=== PATIENT | female | born 1940 ===

== ENCOUNTER 2024-08-18 10:00 | Inpatient (IN) | payer OTHER ==
[~2024-08-18] VITALS: Ht 73.7 cm; Wt 68.9 kg
[2024-08-21] MEDS ORDERED: AVAPRO300 MG PO (10:52)
[2024-08-21] MEDS ORDERED: NORVASC10 MG (10:53)
[2024-08-21] MEDS ORDERED: SYNTHROID137 MCG (10:53)
[2024-08-21] MEDS ORDERED: NEXIUM 24HR20 M1 (10:54)
[2024-08-21] MEDS ORDERED: XARELTO20 MG (10:54)
[2024-08-21] MEDS ORDERED: ISOSORBIDE MONO60 MG (10:55)
[2024-08-21 11:17] VITALS: BP 125/68
[2024-08-21 11:23] VITALS: BP 160/78
[2024-08-29] MEDS ORDERED: BUPIVACAINE HCL/MPF 0.5% 30ML VIAL ONE (07:06)
[2024-08-29] MEDS ORDERED: VANCOMYCIN HCL 1,000 MG VIAL ONE (07:06)
[2024-08-29] MEDS ORDERED: LIDOCAINE HCL 1%/EPINEPHRINE 20ML VIAL IJ ONE (07:06)
[2024-08-29] MEDS ORDERED: KETOROLAC TROMETHAMINE 60 MG VIAL IM ONE (07:06)
[2024-08-29] MEDS ORDERED: CEFAZOLIN SODIUM 1,000 MG VIAL ONE ×2 (07:19→11:51)
[2024-08-29] MEDS ORDERED: TRANEXAMIC ACID 100MG/1ML (1000MG) AMPUL IV ONE (07:19)
[2024-08-29] MEDS ORDERED: MORPHINE SULFATE 4 MG/ML VIAL IV ONE ×3 (07:30→11:00)
[2024-08-29] MEDS ORDERED: ISOPROPYL ALCOHOL 30 ML OUNCE TOP ONE (07:30)
[2024-08-29] MEDS ORDERED: OxyCODONE HCL 5 MG TABLET (ROXICODONE) PO PRN (09:30)
[2024-08-29] MEDS ORDERED: ONDANSETRON HCL 2 MG/ML VIAL IV PRN (09:30)
[2024-08-29] MEDS ORDERED: ACETAMINOPHEN 325 MG TABLET PO PRN (10:00)
[2024-08-29] MEDS ORDERED: SUGAMMADEX SODIUM 200 MG/2 ML VIAL IV ONE (11:00)
[2024-08-29] MEDS ORDERED: MORPHINE SULFATE 4 MG/ML CARTRIDGE IV SCH (12:00)
[2024-08-29] MEDS ORDERED: CEFAZOLIN SODIUM 1,000 MG VIAL IV SCH (12:00)
[2024-08-29] MEDS ORDERED: ENALAPRILAT DIHYDRATE 1.25 MG/ML VIAL IV ONE (12:05)
[2024-08-29] MEDS ORDERED: ONDANSETRON HCL 2 MG/ML VIAL ONE (12:24)
[2024-08-29 14:39] VITALS: BP 125/68
[2024-08-29] MEDS ORDERED: ENALAPRILAT DIHYDRATE 2.5 MG/2 ML VIAL IV PRN (15:45)
[2024-08-29 16:55] VITALS: BP 144/74
[2024-08-29] MEDS ORDERED: ORPHENADRINE CITRATE 100 MG TABLET PO SCH (21:00)
[2024-08-29] MEDS ORDERED: FAMOTIDINE/PF 20 MG in 0.9 % SODIUM CHLORIDE 8 ML IV PUSH SCH (21:00)
[2024-08-29] MEDS ORDERED: GABAPENTIN 100 MG CAPSULE PO SCH (21:00)
[2024-08-30 00:10] VITALS: BP 157/75
[2024-08-30 02:07] LABS: BASO % 0.2 % (0.1-1.2); EOS # 0.13 (0.04-0.54); EOS % 1.1 % (0.7-7.0); HEMATOCRIT 32.4 % (34.1-44.9); HEMOGLOBIN 10.9 g/dL (11.2-15.7); LYMPH # 1.63 (1.18-3.74); LYMPH % 13.5 % (19.3-53.1); MEAN CORPUSCULAR HEMOGLOBIN 30.3 pg (25.6-32.2); MONO # 0.76 (0.24-0.82); MONO % 6.3 % (4.7-12.5); NEUT # 9.53 (1.56-6.13); NEUT % 78.7 % (34.0-71.1); PLATELET COUNT 261 K/uL (163-369); RED CELL DISTRIBUTION WIDTH 13.9 % (11.6-14.4)
[2024-08-30] MEDS ORDERED: LEVOTHYROXINE SODIUM 137 MCG TABLET PO SCH (06:00)
[2024-08-30 07:59] VITALS: BP 159/77
[2024-08-30] MEDS ORDERED: ISOSORBIDE MONONITRATE 60 MG TABLET PO SCH (09:00)
[2024-08-30] MEDS ORDERED: IRBESARTAN 300 MG TABLET PO SCH (09:00)
[2024-08-30] MEDS ORDERED: APIXABAN 2.5 MG TABLET PO SCH (09:00)
[2024-08-30] MEDS ORDERED: AMLODIPINE BESYLATE 10 MG TABLET PO SCH (09:00)
[2024-08-30 12:21] LABS: COVID-19 AG NEGATIVE (NEGATIVE)
[2024-08-30 12:30] LABS: ALBUMIN 2.3 gm/dL (3.4-5.0); BILIRUBIN TOTAL 0.8 mg/dL (0.3-1.2); CREATININE SERUM 0.74 mg/dL (0.55-1.02); GFR 74.77; GLOBULINA 2.6 G/DL (2.4-3.5); POTASSIUM 4.19 mEq/L (3.5-5.1); TOTAL PROTEIN 4.9 gm/dL (6.4-8.2)
[2024-08-30 12:42] VITALS: BP 153/76
[2024-08-30 16:54] VITALS: BP 165/80
[2024-08-31 02:17] LABS: BASO % 0.3 % (0.1-1.2); EOS # 0.38 (0.04-0.54); EOS % 3.1 % (0.7-7.0); HEMATOCRIT 32.7 % (34.1-44.9); HEMOGLOBIN 10.9 g/dL (11.2-15.7); LYMPH # 2.27 (1.18-3.74); LYMPH % 18.4 % (19.3-53.1); MEAN CORPUSCULAR HEMOGLOBIN 29.8 pg (25.6-32.2); MONO # 0.85 (0.24-0.82); MONO % 6.9 % (4.7-12.5); NEUT # 8.75 (1.56-6.13); NEUT % 70.8 % (34.0-71.1); PLATELET COUNT 260 K/uL (163-369); RED BLOOD COUNT 3.66 M/uL (3.93-5.22); RED CELL DISTRIBUTION WIDTH 14.1 % (11.6-14.4)
[2024-08-31 12:57] VITALS: BP 140/80
[2024-08-31] MEDS ORDERED: NORFLEX100MG PO (13:18)
[2024-08-31] MEDS ORDERED: ELIQUIS2.5 MG PO (13:19)
[2024-08-31] MEDS ORDERED: GABAPENTIN100 MG PO (13:20)
[2024-08-31] MEDS ORDERED: PERCOCET 5-3251 EACH PO (13:21)
[2024-08-31] MEDS ORDERED: FAMOtidine 20 MG TABLET PO SCH (21:00)
== END 2024-08-31 18:33 | DRG 470 ==
LOC: OB/GYN 08-29 05:48 → O/R 08-29 05:48 → SURH 08-29 07:00 → OB/GYN 08-29 11:36
PROVIDERS: ADMIT Orthopaedic Surgery; ATTEND Orthopaedic Surgery
PROC: 0QUD0KZ Supplement Right Patella with Nonautologous Tissue Substitute, Open Approach (ICD-10-PCS; 2024-08-29)
PROC: 0SRC0JZ Replacement of Right Knee Joint with Synthetic Substitute, Open Approach (ICD-10-PCS; principal; 2024-08-29 07:00)
DX: M17.11 Unilateral primary osteoarthritis, right knee (principal); M85.661 Other cyst of bone, right lower leg; M65.861 Other synovitis and tenosynovitis, right lower leg; E03.9 Hypothyroidism, unspecified; I10 Essential (primary) hypertension

== ENCOUNTER 2024-08-21 11:32 | Outpatient (CLI) | payer OTHER ==
[~2024-08-21 11:32] MED LIST: AVAPRO300 MG PO; ISOSORBIDE MONO60 MG; NEXIUM 24HR20 M1; NORVASC10 MG; SYNTHROID137 MCG; XARELTO20 MG
[2024-08-21 12:55] LABS: PH,URINE 5.5 (5.0-8.0); URINE APPEARANCE Clear; URINE BILIRRUBIN Negative (NEGATIVE); URINE BLOOD Negative; URINE COLOR Yellow; URINE GLUCOSE Negative (NEGATIVE); URINE KETONE Negative (NEGATIVE); URINE LEUKOCYTE Negative; URINE NITRATE Negative; URINE PROTEIN Negative (NEGATIVE); URINE UROBILINOGEN 0.2 E.U./dl
[2024-08-21 12:57] LABS: URINE BACTERIA 255.6 uL (0.0-1933); URINE EPITHELIAL CELLS 21.4 uL (0.0-38.8); URINE WBC 3.7 uL (0.0-23.2)
[2024-08-21 13:01] LABS: URINE CAST 0.14 uL (0.0-1.40)
[2024-08-21 13:01] LABS: HEMATOCRIT 36.6 % (36.0-45.00); MEAN CELL VOLUME 92.6 fL (80.00-100.00); MEAN CORPUSCULAR HEMOGLOBIN 30.3 pg (27.00-32.0); MEAN CORPUSCULAR HGB CONC 32.7 g/dl (32.0-36.0); PLATELET COUNT 306 K/uL (150-450); RED BLOOD COUNT 3.96 M/uL (4.00-6.00); RED CELL DISTRIBUTION WIDTH 14.3 % (11.5-14.5)
[2024-08-21 13:47] LABS: ALBUMIN 3.6 gm/dL (3.4-5.0); BILIRUBIN TOTAL 0.57 mg/dL (0.3-1.2); CALCIUM 9.4 mg/dL (8.5-10.1); CREATININE SERUM 1.04 mg/dL (0.55-1.02); GFR 50.48; GLOBULINA 3.7 G/DL (2.4-3.5); POTASSIUM 4.11 mEq/L (3.5-5.1); TOTAL PROTEIN 7.3 gm/dL (6.4-8.2)
[2024-08-21 13:50] LABS: INR 1.17; PARTIAL THROMBOPLASTIN TIME 31.8 SECONDS (22.0-34.0); PROTHROMBIN TIME 12.6 SECONDS (9.0-11.5)
== END 2024-08-21 13:53 | disposition home or self-care (01) ==
LOC: LAB 11:32
PROVIDERS: ATTEND Anesthesiology
DX: D64.9 Anemia, unspecified (principal); E11.9 Type 2 diabetes mellitus without complications; N39.0 Urinary tract infection, site not specified; D69.6 Thrombocytopenia, unspecified; N93.9 Abnormal uterine and vaginal bleeding, unspecified; E87.0 Hyperosmolality and hypernatremia